=== PATIENT | male | born 1940 | race Caucasian/White ===

== ENCOUNTER 2017-10-05 17:44 | Emergency (ER) | payer OTHER ==
[~2017-10-05] VITALS: Ht 182.9 cm; Wt 91.0 kg
[2017-10-05] MEDS ORDERED: SODIUM CHLORIDE 45ML SPRAY NS ONE (18:45)
[2017-10-05] MEDS ORDERED: LEVOFLOXACIN 250MG TABLET PO ONE (18:45)
[2017-10-05] MEDS ORDERED: PREDNISONE 20MG TABLET PO ONE (18:45)
[2017-10-05] MEDS ORDERED: IPRATROPIUM/ALBUTEROL 0.5-3(2.5)MG/3ML NEB HHN ONE (18:45)
[2017-10-05 19:30] VITALS: BP 160/90
[2017-10-05 19:33] LABS: BASOPHILS % 0.6 % (0.0-2.0); EOSINOPHILS % 1.3 % (0.0-5.0); HEMATOCRIT. 40.5 % (42.0-52.0); HEMOGLOBIN. 13.8 g/dL (14.0-18.0); LYMPHOCYTES % 10.5 % (20.0-50.0); MEAN CORPUSCULAR HEMOGLOBIN 30.7 pg (28.0-32.0); MEAN CORPUSCULAR VOLUME 90.2 fL (80.0-94.0); MEAN PLATELET VOLUME 7.1 fl (7.4-10.4); NEUTROPHILS % 80.6 % (40.0-76.0); PLATELET 169 x1000/uL (130-400); RED BLOOD CELL COUNT 4.49 mill/uL (4.7-6.1); RED CELL DISTRIBUTION WIDTH 14.4 % (11.6-14.6)
[2017-10-05 19:40] LABS: PARTIAL THROMBOPLASTIN TIME 26.8 sec (23.4-31.0); PROTHROMBIN TIME 10.4 sec (9.4-11.6)
[2017-10-05 19:41] LABS: CHLORIDE 104 mEq/L (98-107)
[2017-10-05 19:49] LABS: CARBON DIOXIDE 29 mEq/L (21-32); CREATINE KINASE 165 IU/L (39-308)
[2017-10-05 19:50] LABS: TROPONIN I < 0.02 ng/mL (0.00-0.04)
== END 2017-10-05 20:20 | disposition home or self-care (01) ==
LOC: ER 17:44
DX: J40 Bronchitis, not specified as acute or chronic (principal); R04.0 Epistaxis; E03.9 Hypothyroidism, unspecified; Z87.891 Personal history of nicotine dependence; Z98.890 Other specified postprocedural states
CPT/HCPCS: 36415; 71010; 80053; 82550; 83690; 83880; 84484; 85025; 85610; 85730; 94640; 99285; J7512; J7620